=== PATIENT | male | born 1975 | race African-American/Black ===

== ENCOUNTER 2021-12-12 22:34 | Emergency (ER) | payer MEDICAID ==
[~2021-12-12] VITALS: Ht 182.9 cm; Wt 100.0 kg
[2021-12-12] MEDS ORDERED: HYDROCODONE/ACETAMINOPHEN 10/325MG TABLET PO ONE (23:15)
[2021-12-13] MEDS: HYDROCODONE/ACETAMINOPHEN 10/325MG TABLET PO NR ×2 (01:15→03:22)
[2021-12-13] MEDS ORDERED: LIDO700A30 TP (05:36)
[2021-12-13] MEDS ORDERED: IBUP-2029 MT (05:36)
[2021-12-13 05:57] VITALS: BP 135/74
[2021-12-13] MEDS ORDERED: IOHEXOL-300 100 ML BOTTLE ONE (07:14)
== END 2021-12-13 05:59 | disposition home or self-care (01) ==
LOC: ER 22:34
DX: M47.816 Spondylosis without myelopathy or radiculopathy, lumbar region (principal); G40.909 Epilepsy, unspecified, not intractable, without status epilepticus
CPT/HCPCS: 72132; 99285; Q9967